=== PATIENT | female | born 1985 | race Caucasian/White ===

== ENCOUNTER 2016-06-07 00:17 | Outpatient (CLI) ==
[2013-12-11 08:56] VITALS: BMI 28.2
== END 2016-06-07 00:18 ==
LOC: AMBL 00:17
PROVIDERS: ATTEND Family Medicine
DX: R41.82 Altered mental status, unspecified (principal); Z72.89 Other problems related to lifestyle; F19.90 Other psychoactive substance use, unspecified, uncomplicated

== ENCOUNTER 2018-02-22 06:56 | Emergency (ER) ==
[2018-02-22 07:03] VITALS: BP 131/92; TEMP 98.6; BMI 30.8
--- NOTE | 2018-02-22 07:10 | ED.PDOC ---
General ED Provider: Dr. YUNIER PEDRO Chief Complaint: Earache Stated Complaint: right ear pain Time Seen by Physician: 07:00 (seen with may carmen at all times ) Mode of Arrival: Walk-In Information Source: Patient Exam Limitations: No limitations Primary Care Provider: RENETTA NGUYEN Nursing and Triage Documentation Reviewed and Agree: Yes Does patient meet sepsis criteria?: No System Inflammatory Response Syndrome: Not Applicable Sepsis Protocol: For patient's 13 years and over: Temp is 96.8 and below OR 101 and greater Pulse >90 BPM Resp >20/minute Acutely Altered Mental Status Are patient's symptoms suggestive of a new infection, such as: -Pneumonia -Skin, Soft Tissue -Endocarditis -UTI -Bone, Joint Infection -Implantable Device -Acute Abdominal Infection -Wound Infection -Meningitis -Blood Stream Catheter Infection -Unknown EENT Complaint Exam - Ear Complaint/Exam Onset/Duration: 2 days Symptoms Are: Still present Timing: Intermittent Initial Severity: Moderate Current Severity: Moderate Character: Reports: Dull pain Aggravating: Reports: None Alleviating: Reports: None Associated Signs and Symptoms: Reports: Discharge (yellow). Denies: Ear trauma , Ear swelling, Fever, Hearing loss, Bleeding, Sore throat, Headache, URI symptoms, Foreign body sensation, Rash, Pain to external ear, Pain to external face Ear Surgical History: None Vesicles to External Pinna: No Vesicles to Tragus: No TMJ Tenderness: None Mastoid Tenderness: None Tragal Tenderness: None Material in Canal: Absent: Cerumen, Cerumen impaction, Discharge, Blood, Foreign body Tympanic Membrane: Erythema Differential Diagnoses: Otitis Media Review of Systems - Review Of Systems Constitutional: Reports: No symptoms Eyes: Reports: No symptoms Ears, Nose, Mouth, Throat: Reports: Ear pain Respiratory: Reports: No symptoms Cardiac: Reports: No symptoms GI: Reports: No symptoms : Reports: No symptoms Musculoskeletal: Reports: No symptoms Skin: Reports: No symptoms Neurological: Reports: No symptoms Endocrine: Reports: No symptoms Hematologic/Lymphatic: Reports: No symptoms All Other Systems: Reviewed and Negative Past Medical History - Past Medical History Previously Healthy: Yes Endocrine: Reports: None Cardiovascular: Reports: None Respiratory: Reports: None Hematological: Reports: None Gastrointestinal: Reports: None Genitourinary: Reports: None Neuro/Psych: Reports: None Musculoskeletal: Reports: None Cancer: Reports: None Last Menstrual Period: past week - Surgical History General Surgical History: Reports: None - Family History Family History: Reports: None - Social History Smoking Status: Current every day smoker, Heavy tobacco smoker Hx Substance Use: No Alcohol Screening: Occasionally Physical Exam - Physical Exam Appearance: Well-appearing, No pain distress, Well-nourished Eyes: KAMRYN, EOMI, Conjunctiva clear ENT: Erythema (right ) Respiratory: Airway patent, Breath sounds clear, Breath sounds equal, Respirations nonlabored Cardiovascular: RRR, Pulses normal, No rub, No murmur GI/: Soft, Nontender, No masses, Bowel sounds normal, No Organomegaly Musculoskeletal: Normal strength, ROM intact, No edema, No calf tenderness Skin: Warm, Dry, Normal color Neurological: Sensation intact, Motor intact, Reflexes intact, Cranial nerves intact, Alert, Oriented Psychiatric: Affect appropriate, Mood appropriate Critical Care Note - Critical Care Note Total Time (mins): 0 Course - Course Vital Signs: Temp Pulse Resp BP Pulse Ox 02/22/18 06:59 98.6 F 112 H 20 131/92 H 98 Departure - Departure Time of Disposition: 07:09 Disposition: HOME SELF-CARE Discharge Problem: Acute ear infection Qualifiers: Laterality: right Qualified Code(s): H66.91 - Otitis media, unspecified, right ear Instructions: Ear Infection (ED), Earache (ED) Condition: Good Pt referred to PMD for follow-up: Yes IPMP verified?: No Additional Instructions: Please call your Family Physician as soon as possible to schedule a follow-up appointment.see [facility] DISCUSSED Prescriptions: Amoxicillin 500 mg PO Q8HR #30 tablet Allergies/Adverse Reactions: Allergies Latex, Natural Rubber Adverse Reaction (Verified 02/22/18 07:04) Home Medications: Ambulatory Orders Amoxicillin 500 mg PO Q8HR #30 tablet 02/22/18 Disposition Discussed With: Patient
== END 2018-02-22 07:25 | disposition home or self-care (01) ==
LOC: ED 06:56
DX: H66.91 Otitis media, unspecified, right ear (principal); F17.210 Nicotine dependence, cigarettes, uncomplicated
CPT/HCPCS: 36415; 80053; 80061; 80306; 81001; 84439; 84443; 84703; 85025; 99282

== ENCOUNTER 2018-02-22 07:33 | Outpatient (CLI) ==
[2018-02-22 07:03] VITALS: BMI 30.8
--- NOTE | 2018-02-22 08:34 | DI ---
Exam: Three views of the right shoulder. Comparison: None available. Reason for exam: Shoulder pain. FINDINGS: No acute fracture or dislocation. The humeral head articulates to the bony glenoid. The clavicle ap pears intact. The scapular Y-view is unremarkable. Impression: No acute fracture or dislocation in the right shoulder.
--- NOTE | 2018-02-22 08:35 | DI ---
EXAM: Three views of the cervical spine. History: Neck pain. Findings: Straightening of the normal curvature of the cervical spine. No prevertebral soft tissue s welling. Predental space is not widened. Age indeterminate fracture of the C6 spinous process displ aced by about 9 mm. Also age indeterminate fracture of the C7 spinous process displaced by about 1 cm . Disc space heights are preserved. No subluxation. Impression: Age indeterminate fractures of the C6 and C7 spinous processes
== END 2018-02-22 07:34 | disposition home or self-care (01) ==
LOC: RAD 07:33
PROVIDERS: ATTEND Family Medicine
DX: M25.511 Pain in right shoulder (principal); M54.2 Cervicalgia; Z00.00 Encounter for general adult medical examination without abnormal findings
CPT/HCPCS: 36415; 80053; 80061; 80306; 81001; 84439; 84443; 84703; 85025

== ENCOUNTER 2018-08-04 23:04 | Emergency (ER) ==
[2018-08-04 23:13] VITALS: BP 134/94; TEMP 97.4; BMI 29.0
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
[2018-08-05] MEDS ORDERED: ROCEPHIN IM STA (00:11)
[2018-08-05] MEDS ORDERED: LIDOCAINE HCL 1% SDV IM STA (00:11)
[2018-08-05] MEDS ORDERED: ZITHROMAX PO STA (00:11)
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
== END 2018-08-05 01:15 | disposition home or self-care (01) ==
LOC: ED 23:04
DX: S63.632A Sprain of interphalangeal joint of right middle finger, initial encounter (principal); R51 Headache; A64 Unspecified sexually transmitted disease; F17.210 Nicotine dependence, cigarettes, uncomplicated; Y04.2XXA Assault by strike against or bumped into by another person, initial encounter
CPT/HCPCS: 36415; 81001; 87800; 96372; 99283

== ENCOUNTER 2018-09-21 22:02 | Emergency (ER) ==
[2018-09-21 22:18] VITALS: BP 127/85; TEMP 100.2; BMI 29.8
[2018-09-21] MEDS ORDERED: LIDOCAINE HCL 1% SDV IM STA (22:27)
[2018-09-21] MEDS ORDERED: ROCEPHIN IM STA (22:27)
--- NOTE | 2018-09-21 22:27 | ED.PDOC ---
General ED Provider: Dr. JENNA ANDRADE MD Chief Complaint: Extremity Pain/Injury Stated Complaint: right popliteal area pain Time Seen by Physician: 22:13 Mode of Arrival: Walk-In Information Source: Patient Exam Limitations: No limitations Nursing and Triage Documentation Reviewed and Agree: Yes Does patient meet sepsis criteria?: No If yes, has appropriate treatment been initiated?: Yes System Inflammatory Response Syndrome: Not Applicable Sepsis Protocol: For patient's 13 years and over: Temp is 96.8 and below OR 101 and greater Pulse >90 BPM Resp >20/minute Acutely Altered Mental Status Are patient's symptoms suggestive of a new infection, such as: -Pneumonia -Skin, Soft Tissue -Endocarditis -UTI -Bone, Joint Infection -Implantable Device -Acute Abdominal Infection -Wound Infection -Meningitis -Blood Stream Catheter Infection -Unknown Review of Systems - Review Of Systems Constitutional: Reports: Other (paijn back of knee) Eyes: Reports: No symptoms Ears, Nose, Mouth, Throat: Reports: No symptoms Respiratory: Reports: No symptoms Cardiac: Reports: No symptoms GI: Reports: No symptoms : Reports: No symptoms Musculoskeletal: Reports: No symptoms Skin: Reports: No symptoms Neurological: Reports: No symptoms Endocrine: Reports: No symptoms Hematologic/Lymphatic: Reports: No symptoms All Other Systems: Reviewed and Negative Past Medical History - Past Medical History Previously Healthy: Yes Endocrine: Reports: None Cardiovascular: Reports: None Respiratory: Reports: None Hematological: Reports: None Gastrointestinal: Reports: Liver (possibe Hep C ), Other (PID) Genitourinary: Reports: None Neuro/Psych: Reports: None Musculoskeletal: Reports: None Cancer: Reports: None Last Menstrual Period: PERIODS ARE ABNORMAL LASTED 2 DAYS 1 WEEK AGO 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 - Surgical History General Surgical History: Reports: None - Family History Family History: Reports: None - Social History Smoking Status: Current every day smoker, Heavy tobacco smoker Hx Substance Use: Yes (ALCOHOL, METH, OCCASIONAL MARIJUANA AND BENZOS) Alcohol Screening: Occasionally - Immunizations Tetanus Shot up to Date: (UNKNOWN) Physical Exam - Physical Exam Appearance: Obese Ill-appearing: Mild Pain Distress: Mild Eyes: KAMRYN, EOMI, Conjunctiva clear ENT: Ears normal, Nose normal, Oropharynx normal Respiratory: Airway patent, Breath sounds clear, Breath sounds equal, Respirations nonlabored Cardiovascular: RRR, Pulses normal, No rub, No murmur GI/: Soft, Nontender, No masses, Bowel sounds normal, No Organomegaly Musculoskeletal: Normal strength, ROM intact, No edema, No calf tenderness Skin: Warm, Dry, Normal color (red popliteal area of injection) Neurological: Sensation intact, Motor intact, Reflexes intact, Cranial nerves intact, Alert, Oriented Psychiatric: Affect appropriate, Mood appropriate Critical Care Note - Critical Care Note Total Time (mins): 0 Course - Course Orders, Labs, Meds: Orders Category Date Time Status Ceftriaxone Sodium [Rocephin] MEDS 09/21/18 22:27 Discontinued 1 gm IM ONCE STA Lidocaine HCl/Pf [Lidocaine HCl 1% Sdv] MEDS 09/21/18 22:27 Discontinued 2.1 ml IM ONCE STA Medications Discontinued Medications Generic Name Dose Route Start Last Admin Trade Name Freq PRN Reason Stop Dose Admin Ceftriaxone Sodium 1 gm 09/21/18 22:27 09/21/18 22:57 Rocephin IM 09/21/18 22:28 1 gm ONCE STA Administration Lidocaine HCl 2.1 ml 09/21/18 22:27 09/21/18 22:56 Lidocaine Hcl 1% Sdv IM 09/21/18 22:28 2.1 ml ONCE STA Administration Vital Signs: Temp Pulse Resp BP Pulse Ox 09/21/18 22:03 100.2 F H 118 H 18 127/85 99 Departure - Departure Time of Disposition: 23:43 Disposition: HOME SELF-CARE Discharge Problem: Cellulitis of right lower leg Instructions: Cellulitis (ED) Condition: Good Pt referred to PMD for follow-up: Yes IPMP verified?: No Prescriptions: Cephalexin [Keflex] 500 mg PO Q12HR 10 Days #20 capsule NS Allergies/Adverse Reactions: Allergies Latex, Natural Rubber Adverse Reaction (Verified 09/21/18 22:17) Home Medications: Ambulatory Orders Ibuprofen [Motrin] 600 mg PO Q6H PRN #30 tablet 08/05/18 Cephalexin [Keflex] 500 mg PO Q12HR 10 Days #20 capsule NS 09/21/18 Transfer Form Completed: No Disposition Discussed With: Patient, Family
[2018-09-21] MEDS ORDERED: TORADOL IM STA (23:04)
== END 2018-09-21 23:55 | disposition home or self-care (01) ==
LOC: ED 22:02
DX: L03.115 Cellulitis of right lower limb (principal); F17.210 Nicotine dependence, cigarettes, uncomplicated
CPT/HCPCS: 96372; 99282

== ENCOUNTER 2018-10-05 14:52 | Emergency (ER) | payer OTHER ==
[2018-10-05 15:00] VITALS: TEMP 99.8; BMI 29.9
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
[2018-10-05 16:20] VITALS: BP 142/88
== END 2018-10-05 17:12 | disposition home or self-care (01) ==
LOC: ED 14:52
DX: L03.115 Cellulitis of right lower limb (principal); F17.210 Nicotine dependence, cigarettes, uncomplicated
CPT/HCPCS: 99282

== ENCOUNTER 2018-10-18 12:00 | Outpatient (CLI) | END 2018-10-18 12:01 | disposition home or self-care (01) | LOC: LAB 12:00 | PROVIDERS: ATTEND Nurse Practitioner Family | DX: S81.801A Unspecified open wound, right lower leg, initial encounter (principal); Z00.00 Encounter for general adult medical examination without abnormal findings; F19.90 Other psychoactive substance use, unspecified, uncomplicated; F15.10 Other stimulant abuse, uncomplicated | CPT/HCPCS: 36415; 80053; 80061; 80074; 84443; 85025; 86708; 86803; 87070; 87186; 87340; 87522 ==